=== PATIENT | male | born 1995 | race Caucasian/White ===

== ENCOUNTER 2022-04-09 02:25 | Emergency (ER) | payer OTHER ==
[2022-04-09] MEDS ORDERED: [UNRECOGNIZED DRUG - OTHER] TP (05:31)
== END 2022-04-09 05:43 | disposition home or self-care (01) ==
LOC: ER1 02:25
DX: S02.2XXA Fracture of nasal bones, initial encounter for closed fracture (principal); S05.12XA Contusion of eyeball and orbital tissues, left eye, initial encounter; F17.210 Nicotine dependence, cigarettes, uncomplicated; Z88.8 Allergy status to other drugs, medicaments and biological substances; W17.89XA Other fall from one level to another, initial encounter; Y92.009 Unspecified place in unspecified non-institutional (private) residence as the place of occurrence of the external cause
CPT/HCPCS: 70450; 70486; 71045; 72125; 72128; 72131; 99284; Q9967